=== PATIENT | female | born 1980 | race Caucasian/White ===

== ENCOUNTER 2022-05-08 13:41 | Outpatient (CLI) | payer BC, SELFPAY ==
--- NOTE | 2022-05-08 14:47 | PM.ST ---
Stress Test Note Date Time Seen by Provider: 14:30 Date Seen: 05/08/22 Date of test: 05/08/22 Providers Referring provider: Sebastien Mc Primary care provider: Otis Wright Stress test physician: Felecia Go Stress Test Note Stress test ordered: Stress Echo Indication for test: Palpitations, watch recording/reading atrial fibrillation Stress test medicine: None Results discussion: Patient is scheduled by cardiology for a stress echo. She states she has been having blood pressure issues/hypertension. She had a watch recording stating she was having atrial fibrillation. She was referred to Cardiology. She does have a ZIO patch on for monitoring but they have also ordered a stress echo. Resting EKG shows sinus rhythm, 95 beats per minute. Resting blood pressure is 122/82. Patient's cardiac stress test medical history is reviewed and she is consented to proceed on the order test. Patient was exercised on the treadmill following standard [employer] protocol. She had a calculated target heart rate of 152 and a maximal heart rate of 179. Patient exercised for 8 minutes 42 seconds, achieving 10.3 Mets, stopping due to reaching beyond her target heart rate an reaching maximal exercise tolerance. She had a maximal heart rate of 181 which was 119% of her target. She had a maximal blood pressure 184/80, calculated rate pressure product of 29,356. There were no arrhythmias, no EKG changes of ischemia noted during the stress test. Echo images are pending to couple this for a full formal diagnostic. Impression: Subjectively negative, objectively negative EKG portion of this stress test. Hypertensive response to exercise. Follow up suggested: Patient is discharged home in stable condition. 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
[2022-05-08 14:55] VITALS: BP 152/84; PULSE 120; RESP 18
== END 2022-05-08 13:42 | disposition home or self-care (01) ==
LOC: STRESS 13:41
PROVIDERS: PCP Physician Assistant Medical; Visit Provider Family Medicine
DX: R00.2 Palpitations (principal); R07.89 Other chest pain; I48.91 Unspecified atrial fibrillation; R42 Dizziness and giddiness
CPT/HCPCS: 93016; 93325; 93351

== ENCOUNTER 2022-06-26 10:43 | Outpatient (CLI) | payer BC, SELFPAY ==
--- NOTE | 2022-06-26 11:00 | CRLHL7_ITS ---
For Patients: As a result of the Century Cures Act, medical imaging exams and procedure reports are released immediately into your electronic medical record. You may view this report before your referring provider. If you have questions, please contact your health care provider. INDICATION: GB polyp surveillance COMPARISON: 06/28/2021 TECHNIQUE: Real time raza scale imaging and color Doppler analysis was performed of the right upper quadrant. FINDINGS: The visualized liver is of normal size and has uniform echogenicity. There is a normal appearance of the hepatic IVC and proximal abdominal aorta. There is no evidence of ascites. Circumscribed lobular hyperechoic and shadowing masslike area adherent to the dependent gallbladder wall measures 18 mm, increased in size from prior. A small polyp is also present measuring 4mm. The gallbladder wall measures 2 mm in thickness. The common bile duct is of normal size and measures 4 mm in diameter at the level of the jazmin hepatis. IMPRESSION: Increased size of gallbladder mass/polyp now measuring 18 millimeters. Dictated by Jon Terrell MD @ 06/26/2022 11:50:06 AM (Electronically Signed)
== END 2022-06-26 10:44 | disposition home or self-care (01) ==
LOC: US 10:43
PROVIDERS: PCP Family Medicine; Visit Provider Family Medicine
DX: K80.20 Calculus of gallbladder without cholecystitis without obstruction (principal); K21.9 Gastro-esophageal reflux disease without esophagitis
CPT/HCPCS: 76705; 87338

== ENCOUNTER 2022-07-16 11:42 | Outpatient (CLI) | payer BC, SELFPAY ==
[2022-07-16 14:27] LABS: INR 1.07 (0.91-1.10); Prothrombin Time 14.3 Seconds
[2022-07-16 21:49] LABS: Chloride* 104 mmol/L (96-114)
[2022-07-16 21:50] LABS: Albumin* 4.6 g/dL (3.3-5.0); Sodium* 138 mmol/L (135-149)
[2022-07-16 21:51] LABS: Potassium* 4.4 mmol/L (3.6-5.1)
[2022-07-16 21:52] LABS: Cholesterol* 132 mg/dL (90-199)
[2022-07-16 21:53] LABS: Alanine Aminotransferase* 19 U/L (4-35); Alkaline Phosphatase* 88 U/L (40-150); Aspartate Amino Transferase* 25 U/L (12-35); Bilirubin Total* 0.5 mg/dL (0.1-1.5); Blood Urea Nitrogen* 8 mg/dL (5-24); Carbon Dioxide* 24 mmol/L (20-32); Creatinine* 0.8 mg/dL (0.5-1.5); Estimated Glomerular Filt Rate 95 ml/min; Glucose* 93 mg/dL (60-115); Total Protein* 7.3 g/dL (6.0-8.3); Triglycerides* 77 mg/dL (40-149)
[2022-07-16 21:54] LABS: Calcium* 9.6 mg/dL (8.4-10.6); HDL Cholesterol* 37 mg/dL (>=50); LDL Cholesterol Calculated 80 mg/dL (<100)
== END 2022-07-16 11:43 | disposition home or self-care (01) ==
PROVIDERS: PCP Family Medicine; Visit Provider Family Medicine
DX: Z01.818 Encounter for other preprocedural examination (principal); K21.9 Gastro-esophageal reflux disease without esophagitis; Z13.6 Encounter for screening for cardiovascular disorders
CPT/HCPCS: 80053; 80061; 85610

== ENCOUNTER 2022-09-24 09:58 | Outpatient (CLI) | payer BC, SELFPAY ==
--- NOTE | 2022-09-24 10:15 | MR_ITS ---
[address] [address] Phone:?[phone] Fax:?[phone] Referring Physician Information: Ifeanyi Pandey M.D. [address] [facility] [address] Phone:?[phone] Fax:?[phone] Patient:Crista Villalobos D.O.B:?1980 Sex:?Female Phone:?[phone] [facility] MRN:?[id number] Exam Date:?09/24/2022 ? EXAM: MRI of the RIGHT SHOULDER, without contrast CLINICAL HISTORY: Right shoulder pain. Evaluate for calcific tendinitis. COMPARISONS: None available. TECHNICAL: MRI sequences of the right shoulder: Axials: PD, T2 Coronals: PD, STIR, T2 Sagittals: PD, T2?SEDATION: None CONTRAST: None FINDINGS: Bones: No fracture or suspicious bone marrow signal abnormality. Coracoacromial arch: Acromion: No os acromiale. Type I-II acromion. Acromiohumeral space: The bony distance is unremarkable. Coracohumeral space: The bony distance is unremarkable. Acromioclavicular joint: No acute injury, arthropathy, or inferior hypertrophy. Coracoclavicular ligament: The coracoclavicular ligament is intact. Rotator cuff muscles/tendons: Supraspinatus: The supraspinatus tendon and muscle are intact. Infraspinatus: The infraspinatus tendon and muscle are intact. Teres minor: The teres minor tendon and muscle are intact. Subscapularis: The subscapularis tendon and muscle are intact. Labrum: No evidence of labral tear although evaluation is suboptimal because of nonarthrogram technique. Proximal biceps tendon, long head and short heads: The long and short heads of the proximal biceps tendon are intact. Glenohumeral joint: Physiologic amount of joint fluid. No full-thickness chondral defect or subchondral bone marrow edema/cystic change is seen. No convincing evidence of capsular edema or thickening although evaluation is suboptimal because of lack of joint distention. Bursae: Subacromial/subdeltoid: Slight bursitis. Subcoracoid: No convincing subcoracoid bursal thickening/bursitis. IMPRESSION: 1. Slight subacromial/subdeltoid bursitis. 2. Otherwise, unremarkable MRI of the right shoulder without rotator cuff or biceps pathology. No evidence of labral tear on this nonarthrogram study. No evidence of calcium hydroxyapatite deposition/calcific tendinitis on this MRI; correlation with plain radiographs is recommended (no plain radiographs were provided for review at the time of interpretation of this study). RCB Electronically signed on 09/24/2022 1:40:[address] M.D.
== END 2022-09-24 09:59 | disposition home or self-care (01) ==
LOC: MRI 09:59
PROVIDERS: PCP Family Medicine; Visit Provider Orthopaedic Surgery Sports Medicine
DX: M25.511 Pain in right shoulder (principal); M75.51 Bursitis of right shoulder
CPT/HCPCS: 73221

== ENCOUNTER 2023-10-05 09:57 | Outpatient (CLI) | payer BC, SELFPAY ==
--- NOTE | 2023-10-05 10:15 | CRLHL7_ITS ---
For Patients: As a result of the Century Cures Act, medical imaging exams and procedure reports are released immediately into your electronic medical record. You may view this report before your referring provider. If you have questions, please contact your health care provider. BILATERAL SCREENING MAMMOGRAM WITH COMPUTER-AIDED DETECTION AND TOMOSYNTHESIS TECHNIQUE: CC and MLO views were obtained. These mammographic images have been obtained using full-field digital technique. These mammographic images were interpreted with the benefit of computer-aided detection. Breast Tomosynthesis was used in this interpretation. COMPARISON FILM: 04/11/22, 01/30/21. FINDINGS: The breasts are heterogeneously dense, which may obscure small masses IMPRESSION: There is no radiographic evidence for malignancy. ASSESSMENT: BI-RADS Category 2: Benign RECOMMENDATION: Routine screening mammogram in 1 year. A lay language report of this examination will be provided to the patient. AYUSH SADLER MD Diagnostic/Nuclear Medicine Radiologist [email or web address] [email or web address] be/Dictated by: Ayush Sadler MD @ 10/05/2023 11:14:00 AM (Electronically Signed)
== END 2023-10-05 09:58 | disposition home or self-care (01) ==
LOC: MAMMO 09:58
PROVIDERS: PCP Family Medicine; Visit Provider Family Medicine
DX: Z12.31 Encounter for screening mammogram for malignant neoplasm of breast (principal); R92.2 Inconclusive mammogram
CPT/HCPCS: 77063; 77067

== ENCOUNTER 2024-05-31 08:28 | Outpatient (CLI) | payer BC, SELFPAY ==
--- NOTE | 2024-05-31 08:45 | CRLHL7_ITS ---
For Patients: As a result of the Century Cures Act, medical imaging exams and procedure reports are released immediately into your electronic medical record. You may view this report before your referring provider. If you have questions, please contact your health care provider. DIGITAL DIAGNOSTIC BILATERAL MAMMOGRAM USING TOMOSYNTHESIS AND COMPUTER-AIDED DETECTION LEFT BREAST ULTRASOUND CLINICAL HISTORY: LEFT breast pain. COMPARISON: 10/05/23, 04/11/22, 01/30/21 TECHNIQUE: Digital BILATERAL mammogram in four projections with computer-aided detection. Tomosynthesis was used in this interpretation. Real-time ultrasound imaging of LEFT breast with imaging documentation. BREAST COMPOSITION: The breasts are heterogeneously dense, which may obscure small masses. FINDINGS: 3D CC/MLO BILATERAL mammogram images submitted. No suspicious mass or architectural distortion. No suspicious calcifications. No adenopathy. Targeted LEFT breast ultrasound performed at 11 o`clock 8 cm from the nipple. Normal fibroglandular tissue is present. No suspicious mass or fluid collection. IMPRESSION: No evidence of malignancy. Normal fibroglandular tissue. RECOMMENDATIONS: Annual BILATERAL screening mammography. Results and recommendations discussed with the patient. BI-RADS Category 2: Benign A lay language report of this examination will be provided to the patient. Dictated by Jon Terrell MD @ 05/31/2024 9:33:12 AM jj/Dictated by: Jon Terrell MD @ 05/31/2024 9:33:00 AM (Electronically Signed)
--- NOTE | 2024-05-31 09:15 | CRLHL7_ITS ---
For Patients: As a result of the Cures Act, medical imaging exams and procedure reports are released immediately into your electronic medical record. You may view this report before your referring provider. If you have questions, please contact your health care provider. PLEASE SEE DIGITAL DIAGNOSTIC BILATERAL MAMMOGRAM PERFORMED SAME DAY CRL:ayaan kuo/Dictated by: Jon Terrell MD @ 05/31/2024 9:33:00 AM (Electronically Signed)
== END 2024-05-31 08:29 | disposition home or self-care (01) ==
PROVIDERS: Visit Provider Obstetrics & Gynecology
DX: N64.4 Mastodynia (principal); R92.2 Inconclusive mammogram; Z80.3 Family history of malignant neoplasm of breast
CPT/HCPCS: 76642; 77066; G0279

== ENCOUNTER 2025-01-17 08:50 | Outpatient (CLI) | payer BC, SELFPAY ==
--- NOTE | 2025-01-17 09:00 | CRLHL7_ITS ---
For Patients: As a result of the Century Cures Act, medical imaging exams and procedure reports are released immediately into your electronic medical record. You may view this report before your referring provider. If you have questions, please contact your health care provider. INDICATION: UNSPECIFIED ABDOMINAL PAIN TECHNIQUE: A CT volumetric acquisition was performed of the abdomen and pelvis without intravenous contrast. Please note that all CT scans at this facility use dose modulation, iterative reconstruction, and/or weight-based dosing when appropriate to reduce radiation dose to as low as reasonably achievable. COMPARISON: Ultrasound 06/26/2022 FINDINGS: The CT images demonstrate normal aeration of the lung bases. There is no evidence of pleural or pericardial fluid. Within the abdomen the liver appears normal in size and density. The spleen is of normal size. There is no evidence of mass effect or inflammation within the pancreas. The gallbladder is absent. The kidneys are of normal size and there is no evidence of a calculus within either kidney or ureter and there is no evidence of hydronephrosis. The small and large bowel loops appear normal and there are no abnormalities noted within the small bowel mesentery or greater omentum. The aorta and IVC appear normal. There is no evidence of retroperitoneal lymphadenopathy. The uterus and ovaries appear normal. There is no evidence of a ventral abdominal wall hernia. Facet degeneration L4-5. IMPRESSION: Negative noncontrast abdominal pelvic CT. Please note that all CT scans at this facility use dose modulation, iterative reconstruction, and/or weight-based dosing when appropriate to reduce radiation dose to as low as reasonably achievable. Dictated by Jno Terrell MD @ 01/17/2025 9:54:10 AM (Electronically Signed)
== END 2025-01-17 08:51 | disposition home or self-care (01) ==
LOC: CT 08:50
PROVIDERS: PCP Nurse Practitioner Family; Visit Provider Nurse Practitioner Family
DX: R10.9 Unspecified abdominal pain (principal)
CPT/HCPCS: 74176

== ENCOUNTER 2025-08-31 08:19 | Outpatient (CLI) | payer BC, SELFPAY | END 2025-08-31 08:20 | disposition home or self-care (01) | LOC: NFLDREF 09-05 21:11 | PROVIDERS: PCP Nurse Practitioner Family; Referring Provider Nurse Practitioner Family; Visit Provider Family Medicine | DX: Z00.00 Encounter for general adult medical examination without abnormal findings (principal); Z13.6 Encounter for screening for cardiovascular disorders | CPT/HCPCS: 80053; 80061 ==